=== PATIENT | female | born 1955 | race Caucasian/White ===

== ENCOUNTER → 2016-11-17 | Outpatient (CLI) | payer BC ==
--- NOTE | ~2016-11-17 | MY11 ---
[facility] A Service of [facility] RADIOLOGY TEXT RESULTS PATIENT: JAMILA DOUGHERTY LOCATION: [facility] : 51 UNIT #: [id number] AGE: [address]: Meme Gutierrez MD SEX: F ORDER DR: [id number] [facility] [address] [place], [place] [address] [id number] O MR#: [id number] Acc #: [id number] NAME: JAMILA DOUGHERTY : 1955 SEX: F STUDY DATE/TIME: 11/17/2016 15:31 UNIT: [facility] ROOM: STUDY DESCRIPTION: MY Mammogram Screening Dig Jevon Attending Physician: Margo Gutierrez M.D. Ordering Physician: Margo Gutierrez M.D. Primary Care Physician: Margo Gutierrez M.D. MEDICAL IMAGING REPORT This report is preliminary unless electronic signature is present EXAM Digital screening mammogram, 11/17/2016 HISTORY 61-year-old woman, positive family history, mother age 40. Previous right breast biopsy. Annual screen. FINDINGS Digital imaging of each breast was completed utilizing screening protocol. Skin marker was placed at previous right breast biopsy scar. Breast parenchyma remains mildly dense and stable. I see no interval occurring mass. There are no suspicious microcalcifications and no architectural deformity. IMPRESSION Negative mammogram. Annual screening recommended. Patients over the age of 40 are entered into a reminder system with target due date for the next mammogram. A result letter will also be sent to the patient. BIRADS: 1 Negative Dictated by... Carlos Townsend M.D. THIS IS AN ELECTRONICALLY VERIFIED REPORT Carlos Townsend M.D. at 11/18/2016 8:10 AM MAHESH/rowdy TD: 11/17/2016 23:34 JOB #: [id number] [facility] A Service of [facility] RADIOLOGY TEXT RESULTS PATIENT: JAMILA DOUGHERTY LOCATION: [facility] #: [id number] : 51 UNIT #: [id number] AGE: [address]: Meme Gutierrez MD SEX: F ORDER DR: MEDICAL IMAGING REPORT Page 1 of 1 COPY
== END | disposition home or self-care (01) ==
LOC: CWCC 15:05
DX: Z12.31 Encounter for screening mammogram for malignant neoplasm of breast (principal); Z80.3 Family history of malignant neoplasm of breast; Z98.890 Other specified postprocedural states
CPT/HCPCS: G0202